=== PATIENT | female | born 1955 | race American Indian/Alaskan Native ===

== ENCOUNTER 2016-10-26 05:17 | Inpatient (IN) | payer OTHER ==
[~2016-10-26] VITALS: Ht 167.6 cm; Wt 72.6 kg
--- NOTE | ~2016-10-26 | O ---
[address] [address] OPERATIVE REPORT Name: VICKIE ARMENTA Room #: 409-P ADM IN M.R.#: [id number] Admission: 10/26/16 Attend Phys: Jonathon Aguirre MD Discharge: Date of : 59 Report #: [id number] THIS REPORT FOR: //name// CC: ROMI physician/PCP Jonathon Aguirre DATE OF SERVICE: 10/26/2016 SERVICE: Orthopedics. 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 Chronic left shoulder pain. 2. Left shoulder arthritis. 3. 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 4. Left shoulder biceps tendinitis. 5. Status post multiple shoulder operations (6 surgeries). POSTOPERATIVE DIAGNOSES: 1. Chronic left shoulder pain. 2. Left shoulder arthritis. 3. 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 4. Left shoulder biceps tendinitis. 5. Status post multiple shoulder operations (6 surgeries). PROCEDURE: 1. Left total shoulder arthroplasty. 2. Left open biceps tenodesis. ANESTHESIA TYPE: Indwelling nerve catheter with general endotracheal. COMPLICATIONS: None. DRAINS: None. SPECIMENS: Humeral head and biceps tendon stump were discarded. ESTIMATED BLOOD LOSS: 150 mL. FINDINGS: 1. DePuy [employer] Unite total shoulder arthroplasty system with a 44 x [address] [address] OPERATIVE REPORT Name: VICKIE ARMENTA Room #: 409-P [facility] IN [facility].#: [id number] Admission: 10/26/16 Attend Phys: Jonathon Aguirre MD Discharge: Date of : 59 Report #: [id number] humeral head, size 10 stem with a 10 body on the humerus. The glenoid was a 40-mm anchor peg glenoid. 2. Comb Winder surgeon required due to the complexity of the case, specifically multiple operated left shoulder with previous humeral bone grafting that was anticipated to generate significant sclerosis within the central portion of the humerus making access to the humeral canal more difficult, in addition the opinion on evaluation and determination of hemiarthroplasty versus total shoulder arthroplasty. HISTORY AND INDICATIONS: The patient is a 61-year-old female who has worker's comp related injury to her left shoulder going back many years, she has had 6 surgeries to the shoulder including bone grafting with internal fixation and internal fixation plate applied previously, this did well for some time and then she had the hardware removed and had a chondroplasty, but this did not sustain. She ultimately was indicated for total shoulder arthroplasty versus hemiarthroplasty. The imaging and the intraoperative video from the last surgery showed significant humeral chondromalacia. The question was the status of the glenoid cartilage. The plan was made therefore for total shoulder arthroplasty versus hemiarthroplasty with tendency to lean towards total should there be any abnormality of the articular cartilage as well as biceps tenodesis to address the bicipital symptoms. The plan was for an daycare assistant surgeon in order to assist with the exposure and bone preparation as well as implantation due to stated history of 6 prior surgeries as well as determination of arturo versus total shoulder arthroplasty. Risks, benefits, alternatives and indications for surgery were discussed with her in detail. Risks include, but not limited to pain, bleeding, infection, injury to nerves or blood vessels, persistent pain despite surgical intervention, failure of any repairs, reconstruction, progression of any preexisting degenerative shoulder issues as well as stiffness, need for further surgery including revision, fracture as well as complications related to anesthesia such as stroke, heart attack, pulmonary complications, thromboembolic disease and . Despite these risks, she wished to proceed. PROCEDURE IN DETAIL: After left upper extremity was correctly identified in the preoperative holding area as the operative extremity, the patient underwent placement of an indwelling nerve catheter. She was then taken to the operating room and general endotracheal anesthesia was induced without complication. She seated into a reclined beach chair position at about 30-degree inclination. She was padded appropriately. Prophylactic antibiotics with 900 mg of clindamycin were administered due to a history of allergy to CEPHALOSPORINS. Left upper extremity was then prepped and draped in standard sterile fashion. A time-out procedure was performed. A standard deltopectoral interval approach was used. This was slightly more lateral than normal because I utilized her previous anterior scar from the prior surgery. Dissection was taken down to the deltopectoral interval where some [address] [address] OPERATIVE REPORT Name: VICKIE ARMENTA Room #: 409-P [facility] IN ..#: [id number] Admission: 10/26/16 Attend Phys: Jonathon Aguirre MD Discharge: Date of : 59 Report #: [id number] adhesions were identified and were freed. The cephalic vein was identified and was retracted laterally. Access to the clavipectoral fascia was then obtained. Upper pectoralis tendon tenotomy was performed with plans for later repair and then the biceps tendon was tagged and identified. The bicipital sheath was opened and the tendon was transected for later tenodesis. There was a tear within the tendon as well as swelling and substantial amount of scarring and synovitis along the tendon within the sheath. The coracobrachialis was retracted medially allowing access to the anterior aspect of the subscapularis. The 3 sisters were tagged and then cauterized and then the rotator cuff insertion of the supraspinatus was identified and then the arthrotomy was performed with a subscapularis tenotomy. The humerus was then visualized and using an extramedullary guide to establish the ideal cut, she was sized for 135-degree neck cut, the initial cut was made and was felt to be slight retroversion with excessive anterior cortex, so a second cut was used. It was performed anteriorly and fading posteriorly to correct the version, which matched her very well at approximately 30 degrees. After this was performed, we evaluated the humerus. There was a dense cortical bone within the central portion of the humerus where the bone grafting had been performed previously. This required additional effort performed by the second surgeon to allow access to the intramedullary canal as well as remove the dense bone in this area for the later humeral preparation. The subscapularis was then mobilized. The anterior capsule was freed from the backside of the subscapularis, which was then tucked out of the way and then the anterior capsulotomy was performed all the way around to the 7 o'clock position. The anterior labrum and biceps insertion was removed as well. The axillary nerve was palpated in the base of the wound. It was anterior to the midpoint of the glenoid. This was retracted gently and then the inferior capsule was reflected off the inferior aspect of glenoid all the way around to the proximal 8 and 9 o'clock position. The posterior labrum was removed as well. The humerus was then retracted posteriorly allowing good access to the glenoid, which was then prepped in the standard fashion down to cortical bone. Note that prior to preparing the glenoid, we stopped and carefully assessed the glenoid to determine if total shoulder arthroplasty was in fact the right option with her history of avascular necrosis diagnosis. There was a deep fissure stellate in shape along the posterior third middle third junction and this was full thickness down to bone. A [place] elevator was used to probe within the fissure and bone could be felt. There was also some chondromalacia more posteroinferiorly. There was a small osteophyte anteriorly. This was considered evidence that the glenoid was affected by the pathologic process as well and that she was in fact developing arthritis throughout the joint, decision was made to proceed with total shoulder. This decision was made in consultation with Dr. Damian Estrada as a second surgeon. When the glenoid was sized for 40-mm implant, then it was prepared accordingly. The wound was then copiously irrigated. The bone pulse lavaged and prepared and [address] [address] OPERATIVE REPORT Name: VICKIE ARMENTA Flaquita Room #: 409-P [facility] IN .R.#: [id number] Admission: 10/26/16 Attend Phys: Jonathon Aguirre MD Discharge: Date of : 59 Report #: [id number] then the DePuy 40 mm all poly anchor peg glenoid was cemented into position and held in place until the cement was cured. There was no motion of the implant after impaction. The wound was then irrigated once more and attention was turned back towards the humerus. The humerus was then sequentially prepared to a size 10 stem carefully accounting for version as all of the instruments were passed into the humerus. An eccentric head was selected as the most anatomic with a 44 mm x 50 mm head. The trial was placed and the trial reduction was performed. There was good tensioning of the soft tissues with a good rebound with a 50% rule. At this point, the trial and broach were removed. The bone was once more lavaged and prepared and then the final implant was impacted into position and a good seating was achieved. Three #2 FiberWires had been passed through the anterior humeral cortex prior to placement of the implant for subscapularis repair. The shoulder was then reduced. Final assessment of motion and stability was confirmed and then the subscapularis repair was performed with a total of 3 [id number] sutures with #2 FiberWire with the first pass through the bone, the second passed through the tendon. Then, the anterior aspect of the supraspinatus was repaired to the upper border of subscapularis closing down the interval with the locking stitch and then this was run down as reinforcement stitch over the subscapularis tenotomy repair. A good strong repair was achieved and the repair was stable to external rotation of at least 50 degrees. We will therefore limit her for 6 weeks to 45 degrees of external rotation confidently. Prior to closing the subscapularis, some vancomycin powder was placed deep within the wound and then superficially additional vancomycin powder was placed. The upper border of the pectoralis was then repaired with a #2 Tevdek suture incorporating the biceps tendon into the biceps tenodesis pectoralis tendon repair. The wound was irrigated prior to placement of the remainder of the vancomycin powder and then the deep layer was closed with 0 Vicryl suture burying the cephalic vein and then the skin was closed with 2-0 Vicryl followed by running subcuticular 3-0 Monocryl, Dermabond and sterile dressing. No drain was required as it was a dry wound. There were no complications and all counts were recorded as correct. <ELECTRONICALLY SIGNED> By: Jonathon Aguirre MD 10/26/16 2038 1227 1337 Jonathon Aguirre MD /nt
--- NOTE | ~2016-10-26 | EKG ---
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
[~2016-10-26 05:17] MED LIST: CELEBREX 200 M200 M1 PO; HYDROCHLOROTH12.5 M2 PO; LEVOTHYROXIN0.088 MG PO; LIPITOR40 MG PO; MAGNESIUM OXID400 MG PO; NITROSTAT0.4 M1 SL; PAXIL10 MG PO; PROVIGIL 200 M200 M1 PO; REQUIP XL2 MG PO; TOPROL XL25 MG PO; TRAZODONE HCL50 MG PO; UROCIT-K5 ME1 PO; ZETIA10 MG PO; ZONEGRAN100 MG PO
[2016-10-26 06:30] VITALS: BP 126/63
[2016-10-26 06:53] LABS: URINE BILIRUBIN NEGATIVE (Negative); URINE BLOOD NEGATIVE (Negative); URINE COLOR YELLOW; URINE GLUCOSE-RANDOM* NEGATIVE (Negative); URINE KETONES NEGATIVE (Negative); URINE LEUKOCYTES-REFLEX TRACE (Negative); URINE PROTEIN (DIPSTICK) NEGATIVE (Negative); URINE UROBILINOGEN 0.2 E.U./dl (0.2-1.0)
[2016-10-26 07:02] LABS: HEMATOCRIT 38.2 % (37.0-47.0); HEMOGLOBIN 12.4 gm/dL (12.0-15.0); MCH 26.7 pg (26.0-34.0); MCHC 32.5 g/dL (28.0-37.0); MCV 82.2 fL (80.0-100.0); RBC 4.65 mil/uL (4.20-5.00); RDW 14.3 % (10.5-14.5); WBC 6.4 thou/uL (4.0-11.0)
[2016-10-26 07:15] LABS: CALCIUM 8.9 mg/dL (8.5-10.1); CREATININE 0.9 mg/dL (0.6-1.0); POTASSIUM 3.7 mmol/L (3.5-5.1)
[2016-10-26 07:22] LABS: PROTIME 9.4 Seconds (9.3-11.4)
[2016-10-26 13:30] VITALS: BP 106/54
[2016-10-26 14:00] VITALS: BP 111/62
[2016-10-26 14:30] VITALS: BP 89/55
[2016-10-26 15:00] VITALS: BP 90/84
[2016-10-26 20:57] VITALS: BP 85/51
[2016-10-27 00:26] VITALS: BP 83/48
[2016-10-27 03:00] VITALS: BP 87/45
[2016-10-27 06:12] LABS: HEMATOCRIT 31.9 % (37.0-47.0)
[2016-10-27 06:14] LABS: HEMOGLOBIN 10.4 gm/dL (12.0-15.0)
[2016-10-27 06:25] LABS: APTT 23.5 Seconds (24.5-32.8); PROTIME 10.1 Seconds (9.3-11.4)
[2016-10-27 08:24] VITALS: BP 94/49
[2016-10-27 10:16] VITALS: BP 89/41
[2016-10-27 20:39] VITALS: BP 127/71
[2016-10-28 03:54] VITALS: BP 99/55
[2016-10-28 05:49] LABS: HEMATOCRIT 29.8 % (37.0-47.0); HEMOGLOBIN 9.5 gm/dL (12.0-15.0); MCH 26.5 pg (26.0-34.0); MCHC 32.1 g/dL (28.0-37.0); MCV 82.7 fL (80.0-100.0); RBC 3.6 mil/uL (4.20-5.00); RDW 13.5 % (10.5-14.5); WBC 6.5 thou/uL (4.0-11.0)
[2016-10-28 06:08] LABS: ALBUMIN 2.5 g/dL (3.4-5.0); CREATININE 0.6 mg/dL (0.6-1.0); PHOSPHORUS 3.8 mg/dL (2.5-4.9); POTASSIUM 4.1 mmol/L (3.5-5.1)
[2016-10-28 08:00] VITALS: BP 106/62
[2016-10-28 10:05] VITALS: BP 106/62
[2016-10-28 10:12] VITALS: BP 106/62
== END 2016-10-28 14:04 | disposition home or self-care (01) | DRG 483 ==
LOC: 4N 05:17 → TBA 05:17 → PRE 09:36 → 4N 13:39
PROVIDERS: Anesthesiology; Hospitalist; Orthopaedic Surgery Sports Medicine
PROC: 0RRK0JZ Replacement of Left Shoulder Joint with Synthetic Substitute, Open Approach (ICD-10-PCS; principal; 2016-10-26)
PROC: 0LS40ZZ Reposition Left Upper Arm Tendon, Open Approach (ICD-10-PCS; principal; 2016-10-26)
DX: M19.012 Primary osteoarthritis, left shoulder (principal); M75.22 Bicipital tendinitis, left shoulder; I10 Essential (primary) hypertension; E78.5 Hyperlipidemia, unspecified; I95.81 Postprocedural hypotension; Z88.8 Allergy status to other drugs, medicaments and biological substances; Z79.899 Other long term (current) drug therapy
CPT/HCPCS: 10790; 50010; 50101; 50172; 50386; 50417; 50733; 50935; 51751; 51771; 52138; 52255; 52256; 53000; 53078; 54118; 56521; 56524; 56525; 56526; 56527; 56530; 62110; 62900; 70005